=== PATIENT | male | born 1975 | race Caucasian/White ===

== ENCOUNTER 2022-08-31 08:56 | Emergency (ER) | payer OTHER, SELFPAY ==
[2022-08-31 09:03] VITALS: BP 143/93; PULSE 70; RESP 16; TEMP 36.4; O2SAT 99
--- NOTE | 2022-08-31 09:05 | ED.UPPEXIN ---
HPI - Extremity Injury (Upper) General Chief Complaint: Extremity Injury, Upper Stated Complaint: rt index finger injury Time Seen by Provider: 08/31/22 09:06 Source: patient and RN notes reviewed Mode of arrival: ambulatory Limitations: no limitations History of Present Illness HPI narrative: 47-year-old male presents concern for pain to the distal 2nd digit of the right hand. Reports last week he smashed the finger. Reports he had some bleeding under the nail. Reports it was not very uncomfortable, did not have any musculoskeletal pain. He reports he recently started developing redness, swelling at the nail bed. He denies drainage from the area. He denies fever, chills, sweats complaint: injury to: right and finger Related Data Allergies Allergy/AdvReac Type Severity Reaction Status Date / Time No Known Allergies Allergy Unverified 08/31/22 09:05 Review of Systems Review of Systems: CONSTITUTIONAL: Denies malaise, chills, sweats, or fever. SKIN: Denies rash or itching, open skin, laceration, abrasion. Reports bleeding under the fingernail of the 2nd digit of the right hand, redness, warmth, swelling, pain surrounding the digit of that nail. MUSCULOSKELETAL: Denies musculoskeletal pain NEUROLOGIC: Denies numbness, weakness All systems reviewed & are unremarkable except as noted in HPI and below PMFSH Comments At time of signature, agree with nursing past medical, surgical, social and family history. There is no relevant family history pertinent to the presenting complaint Exam Narrative: GENERAL: Well-appearing, well-nourished, and in no acute distress. HEAD: Normocephalic, atraumatic. EYES: PERRLA, conjunctivae clear, and EOMI. ENT: Mucous membranes moist. NECK: Supple. No lymphadenopathy CHEST: Clear to auscultation. No respiratory distress. HEART: Regular rate and rhythm. SKIN: Warm, dry. Subungual hematoma noted to the 2nd digit of the right hand with erythema, edema, tenderness noted around the nail bed MUSC: No general digit tenderness of the 2nd digit of the right hand NEURO: Alert and oriented x3. PSYCH: Normal mood and affect Course Course Emergency Course: Patient is aware of diagnosis, understands and agrees to treatment plan. Anticipatory guidance given. Patient agrees to follow-up as directed and is aware of reasons to seek care at the emergency department. Portions of this record may have been created with voice recognition software Level of Care: Express Care Visit Vital Signs Vital signs: Vital Signs Temperature 97.5 F L 08/31/22 09:03 Pulse Rate 70 08/31/22 09:03 Respiratory Rate 16 08/31/22 09:03 Blood Pressure 143/93 H 08/31/22 09:03 Pulse Oximetry 99 08/31/22 09:03 Temperature 97.5 F L 08/31/22 09:03 Pulse Rate 70 08/31/22 09:03 Respiratory Rate 16 08/31/22 09:03 Blood Pressure 143/93 H 08/31/22 09:03 Pulse Oximetry 99 08/31/22 09:03 Reviewed. MDM - Extremity Injury (Upper) MDM Narrative Medical decision making narrative: Exam findings show no acute concerns or changes; patient is non-toxic appearing and is in no distress. Patient is appropriate for outpatient treatment and follow-up. Differential Diagnosis Differential diagnosis: Likely other (Subungual hematoma, paronychia, fracture, contusion) Critical Care Time Critical Care Time Critical Care Time: No Discharge Plan Discharge Clinical Impression: Paronychia, Subungual hematoma Patient Disposition: Home, Self-Care Condition: Stable Instructions: Antibiotic Form, Paronychia (ED) Additional Instructions: Soak your nail: Soak your nail in a mixture of equal parts vinegar and water 3 or 4 times each day. This will help decrease inflammation. Apply a warm compress: Soak a washcloth in warm water and place it on your nail. This will help decrease inflammation. Elevate: Raise your nail above the level of your heart as often as you can. This will help decrease swelling
== END 2022-08-31 09:22 | disposition home or self-care (01) ==
PROVIDERS: Emergency Provider Nurse Practitioner; PCP Family Medicine
DX: L03.011 Cellulitis of right finger (principal); S60.121A Contusion of right index finger with damage to nail, initial encounter; X58.XXXA Exposure to other specified factors, initial encounter
CPT/HCPCS: 11740; 99203; G0463

== ENCOUNTER 2022-10-20 07:10 | Emergency (ER) | payer OTHER, SELFPAY ==
--- NOTE | ~2022-10-20 | US_ITS ---
EXAMINATION: US scrotum doppler DATE: 10/20/2022 08:44 INDICATION: Left scrotal swelling and abscess. TECHNIQUE: Testicular sonogram utilizing grayscale and Doppler COMPARISON: None. FINDINGS: The right testis measures 4.4 x 1.9 x 3.0 cm. The left testis measures 5.0 x 2.2 x 3.1 cm. Symmetric normal grayscale appearance to both testes. There is normal vascular flow to both testes. The right e pididymis is normal with normal vascular flow. The left epididymis is normal with normal vascular gris w. There is no varicocele or hydrocele. The scrotum posterior to the left testis is a 2.2 x 1.3 x 1.0 cm lobulated very hypoechoic lesion with vascular flow extending through an internal septation and w ith posterior acoustic enhancement. There is hyperemia and edema in the surrounding soft tissues. The appearance in conjunction with the provided clinical history would be most consistent with a small r egion of likely phlegmonous changes transition towards abscess. IMPRESSION: 1. 2.2 x 1.3 x 1.0 cm likely developing abscess in the scrotum posterior to the left testis. 2. Otherwise normal testicular ultrasound. Reviewed, dictated and finalized at location A. IMPRESSION: 1. 2.2 x 1.3 x 1.0 cm likely developing abscess in the scrotum posterior to th e left testis. 2. Otherwise normal testicular ultrasound.
[2022-10-20 07:12] VITALS: BP 137/83; PULSE 95; RESP 18; O2SAT 100
[2022-10-20 07:42] VITALS: TEMP 36.9
[2022-10-20 07:58] LABS: Appearance Urine Clear (Clear); Bilirubin Urine Negative (Negative); Blood Urine Negative (Negative); Color Urine Yellow (Yellow); Glucose Urine UA 3+ mg/dL (Negative); Ketones Urine 1+ mg/dL (Negative); Leukocyte Esterase Ur Negative LEU/UL (Negative); Nitrate Urine Negative (Negative); Protein Urine Negative (Negative); Specific Grav Ur 1.026 (1.001-1.035); Urobilinogen Urine 0.2 mg/dL (<2.0)
[2022-10-20 08:01] LABS: Add Urine Microscopic? NO
[2022-10-20 08:46] LABS: Basophils Absolute Auto 0.1 K/mm3 (0.0-0.1); Basophils Percent Auto 0.7 % (0.2-1.2); Eosinophils Absolute Auto 0.1 K/mm3 (0-0.3); Eosinophils Percent Auto 1.2 % (0-4.4); Hematocrit 46.8 % (42.0-52.0); Hemoglobin 16.4 g/dL (14.0-18.0); Immature Granulocyte Absolute 0.03 K/mm3 (0.00-0.031); Immature Granulocyte Percent A 0.3 % (0-0.5); Lymphocytes Absolute Auto 1.84 K/mm3 (0.9-3.2); Lymphocytes Percent Auto 18.2 % (18.3-44.2); Mean Corpuscular Volume 85.6 fl (80-100); Monocytes Absolute Auto 0.6 K/mm3 (0.1-0.6); Monocytes Percent Auto 6.1 % (2.6-8.5); Neutrophils Absolute Auto 7.4 K/mm3 (1.3-6.7); Neutrophils Percent Auto 73.5 % (45.5-73.1); Platelet Count Result 228 k/mm3 (150-375); Red Blood Count 5.47 M/mm3 (4.6-6.20); Red Cell Distribution Width 12.3 % (11.5-14.5); White Blood Count 10.1 K/mm3 (4.5-10.0)
[2022-10-20 08:58] LABS: Alanine Aminotransferase 23 U/L (6-50); Albumin Level 4.5 g/dL (3.5-5.1); Alkaline Phosphatase 51 U/L (38-126); Anion Gap 8 mmol/L (8-16); Aspartate Amino Transferase 21 U/L (17-59); Bilirubin,Total 0.9 mg/dL (0.2-1.3); Blood Urea Nitrogen 17 mg/dL (9-20); Calcium 9.2 mg/dL (8.4-10.2); Carbon Dioxide 28 mmol/L (22-30); Chloride 97 mmol/L (98-107); Estimated CRCL calculation 152 ml/min; Estimated Glomerular Filt Rate > 60; Glucose 286 mg/dL (65-110); Sodium 133 mmol/L (137-145)
--- NOTE | 2022-10-20 09:07 | ED.SKABFB ---
HPI - Skin/Abscess/Foreign Bdy General Chief complaint: Skin/Abscess/Foreign Body Stated complaint: cyst Time Seen by Provider: 10/20/22 07:18 Source: patient, RN notes reviewed and old records reviewed Mode of arrival: ambulatory Limitations: no limitations History of Present Illness HPI narrative: This is a 47 year old male who presents for evaluation of left scrotal bump. He states he noticed lumb the size of a [place] nut yesterday just under his left scrotum. He reports pain at location. He denies nausea, vomiting, fever or chills. He denies any medical problems Related Data Allergies Allergy/AdvReac Type Severity Reaction Status Date / Time No Known Allergies Allergy Unverified 08/31/22 09:05 Review of Systems Constitutional: Constitutional: Denies weakness Cardiovascular: Cardiovascular: Denies syncope, Denies rapid heart rate, Denies irregular heart rhythm, Denies leg edema and Denies dyspnea Respiratory: Respiratory: Denies chest congestion, Denies hemoptysis, Denies excessive phlegm production and Denies dyspnea Gastrointestinal: Gastrointestinal: Denies abdominal pain, Denies hematochezia, Denies diarrhea and Denies vomiting Genitourinary: Genitourinary: Denies hematuria, Denies dysuria, Denies penile discharge and Denies testicular pain Musculoskeletal: Musculoskeletal: Denies joint swelling, Denies loss of height and Denies muscle weakness Integumentary/Breasts: Comments: left scrotal lum Neurologic: Denies syncope, Denies focal weakness and Denies weakness PMFSH Past Medical History Medical History (Updated 10/20/22 @ 10:53 by Mary Diego MD) Patient denies medical problems Surgical History Surgical History (Updated 10/20/22 @ 09:10 by Mary Diego MD) History of appendectomy Social History Social History (Updated 10/20/22 @ 18:09 by Mary Diego MD) Smoking status: Never smoker Exam Const: General: no acute distress and alert Nutritional Appearance: well nourished Orientation/consciousness: patient oriented x3 HENMT: Head: normal to inspection Eyes: EOM: EOMs intact bilaterally Chest: Chest palpation & inspection: normal inspection of the chest Resp: Effort & Inspection: normal respiratory effort Auscultation: clear to auscultation bilaterally Cardio: Rate: regular rate Rhythm: regular rhythm Heart sounds: no murmurs GI: Auscultation: normal bowel sounds : Penis: Yes normal penis and Yes circumcised Scrotum: scrotal swelling on the left (left posterior area with induration, pustule in center with fluctuance, 3 x 4 cm, no necrosis, there is mild erythema present) Skin: Wounds: wounds noted (left scrotum) Neuro: General: patient oriented x3, moves all extremities and CN's II-XI intact bilaterally Extrem: General: normal to inspection Psych: Mental Status: mental status grossly normal Affect: normal affect Attitude: cooperative Course Consultations Consultation #1: I spoke with Cristal ARAGON with urologist. I Discussed that patient has scrotal abscess that I Will I and D and he will need to follow up. She is agreeable for outpatient follow up . Date: 10/20/22 Time: 10:00 Vital Signs Vital signs: Vital Signs Pulse Rate 95 10/20/22 07:12 Respiratory Rate 18 10/20/22 07:12 Blood Pressure 137/83 10/20/22 07:12 Pulse Oximetry 100 10/20/22 07:12 Oxygen Delivery Room Air 10/20/22 07:12 Temperature 98.4 F 10/20/22 07:42 Pulse Rate 95 10/20/22 07:12 Respiratory Rate 18 10/20/22 07:12 Blood Pressure 137/83 10/20/22 07:12 Pulse Oximetry 100 10/20/22 07:12 Oxygen Delivery Room Air 10/20/22 07:12 Procedures Abscess I/D scrotum: Date of Incision: 10/20/22 Time of Incision: 10:50 Side (if applicable): left Local Anesthetic: lidocaine 1% and with epi (2) Amount of anesthesia used (mL): 2 Technique: incised with #11 blade Amount of fluid expressed (m
[2022-10-20] MEDS: LIDO 1%/EPINEPHRINE 1:100,000 20 ML VIAL 10 ML INFILTRATE (09:41)
[2022-10-20] MEDS: SODIUM CHLORIDE 0.9% IV 1,000 ML 999 ML IV CONT (09:42)
== END 2022-10-20 11:10 | disposition home or self-care (01) ==
PROVIDERS: Emergency Provider General Practice; PCP Family Medicine
DX: N49.2 Inflammatory disorders of scrotum (principal); E11.65 Type 2 diabetes mellitus with hyperglycemia
CPT/HCPCS: 36415; 54700; 76870; 80053; 81003; 85025; 93976; 96365; 99284; J0696; J7030